=== PATIENT | female | born 1955 | race Caucasian/White ===

== ENCOUNTER 2020-11-24 07:49 | Observation (INO) | payer OTHER ==
[2020-11-22 15:42] VITALS: BMI 20.7
[2020-11-24 10:31] LABS: Hemoglobin 12.9 g/dL (12.0-16.0)
[2020-11-24 10:51] LABS: Anion Gap 11 mmol/L (10-20); BUN (Urea Nitrogen) 5 mg/dL (9.8-20.1); Calc. Creatinine Clearance 73 mL/min (70-130); Calcium 9.7 mg/dL (7.8-10.44); Carbon Dioxide 26 mmol/L (23-31); Chloride 104 mmol/L (98-107); Glucose 93 mg/dL (80-115); Sodium 137 mmol/L (136-145)
[2020-11-24] MEDS ORDERED: Fentanyl 100 MCG/2 ML VIAL ONE (11:14)
[2020-11-24] MEDS ORDERED: Propofol 1,000 MG/100 ML VIAL IV ONE (11:14)
[2020-11-24] MEDS ORDERED: Lidocaine 1% w/Epinephrine 1:100K 20 ML VIAL ONE (11:18)
[2020-11-24] MEDS ORDERED: Phenylephrine 10 MG/ML VIAL ONE (11:34)
[2020-11-24] MEDS ORDERED: ePHEDrine 50 MG/ML VIAL ONE (11:36)
[2020-11-24] MEDS ORDERED: Ondansetron PF 4 MG/2 ML Vial ONE (11:36)
[2020-11-24] MEDS ORDERED: PROPOFOL 200 MG/20 ML VIAL ONE (11:36)
[2020-11-24] MEDS ORDERED: Dexamethasone 20 MG/5 ML VIAL ONE (11:36)
[2020-11-24] MEDS ORDERED: Lidocaine 1% PF 5 ML VIAL ONE (11:36)
[2020-11-24] MEDS ORDERED: Succinylcholine 200 MG/10 ml SYRINGE FS ONE (11:36)
[2020-11-24] MEDS ORDERED: Dexamethasone 4 mg/ml Vial ONE ×2 (12:00→12:01)
[2020-11-24] MEDS ORDERED: Bacitracin Zinc Ointment 30 gm TUBE ONE (12:57)
[2020-11-24] MEDS ORDERED: Morphine 2 MG/ML VIAL SLOW IVP PRN (15:59)
[2020-11-24] MEDS ORDERED: HYDROcodone/Acetaminophen 5/325 mg Tablet PO PRN (16:00)
[2020-11-24] MEDS ORDERED: Ondansetron PF 4 MG/2 ML Vial IVP PRN (16:05)
[2020-11-24] MEDS: Sodium Chloride 0.45% 1,000 ML IV SCH (18:58)
[2020-11-24] MEDS: Cephalexin 250 MG CAP PO SCH (21:00)
[2020-11-24] MEDS: Bacitracin 1 PK TOP SCH (21:00)
[2020-11-24 23:40] VITALS: TEMP 98.3
[2020-11-25] MEDS: Sodium Chloride 0.45% 1,000 ML IV SCH (01:49)
[2020-11-25 08:32] VITALS: BP 135/79
[2020-11-25] MEDS: Bacitracin 1 PK TOP SCH (09:18)
[2020-11-25] MEDS: Cephalexin 250 MG CAP PO SCH (09:18)
== END 2020-11-25 09:20 ==
LOC: SDC 07:49 → SURG A 13:26
PROVIDERS: ADMIT Otolaryngology Plastic Surgery within the Head & Neck; ATTEND Otolaryngology Plastic Surgery within the Head & Neck
PROC: 0CT80ZZ Resection of Right Parotid Gland, Open Approach (ICD-10-PCS; principal; 2020-11-24)
DX: D11.0 Benign neoplasm of parotid gland (principal); G40.909 Epilepsy, unspecified, not intractable, without status epilepticus; F10.11 Alcohol abuse, in remission; I44.0 Atrioventricular block, first degree; Z79.899 Other long term (current) drug therapy
CPT/HCPCS: 80048; 85014; 85018; 88307; 93005; 93010; G0378; J1100; J2370; J2405; J2704; J3010; J3490